=== PATIENT | female | born 1995 | race Caucasian/White ===

== ENCOUNTER 2016-10-24 22:54 | Emergency (ER) | payer OTHER ==
[2016-10-24 23:26] LABS: URINE APPEARANCE HAZY; URINE BILIRUBIN NEGATIVE (NEGATIVE); URINE BLOOD 4+ (NEGATIVE); URINE GLUCOSE (UA) NEGATIVE (NEGATIVE); URINE LEUKOCYTE ESTERASE NEGATIVE (NEGATIVE); URINE NITRITE NEGATIVE (NEGATIVE); URINE PROTEIN 1+ (NEGATIVE); URINE UROBILINOGEN NORMAL (0-1 mg/dl)
[2016-10-24 23:27] LABS: HCG,QUALITATIVE URINE NEGATIVE; URINE COLOR REDDISH
[2016-10-24 23:31] LABS: URINE BACTERIA 0; URINE EPITHELIAL CELLS FEW /hpf; URINE WBC 0-1 /hpf
[2016-10-25 00:59] LABS: ABSOLUTE NEUTROPHIL COUNT 5.3 K/mm3 (1.8-7.7); BASO # 0.1 K/mm3 (0.0-0.2); BASO % 0.7 % (0.2-1.0); EOS # 0.2 (0.0-0.5); EOS % 1.9 % (0.9-2.9); HEMATOCRIT 42.3 % (37.0-47.0); IMM NEUT% 0.2 % (0-1); LYMPH # 3.8 (1.0-4.8); LYMPH % 37.4 % (15-45); MEAN CELL VOLUME 86.7 fl (81.0-99.0); MEAN CORPUSCULAR HEMOGLOBIN 28.7 pg (27.0-31.0); MEAN CORPUSCULAR HGB CONC 33.1 g/dl (33.0-37.0); MEAN PLATELET VOLUME 10.2 fl (7.4-10.4); MONO # 0.7 (0.0-0.8); MONO % 7.2 % (4-12); NEUT % 52.6 % (43-75); PLATELET COUNT 304 K/mm3 (130-400); RED CELL DISTRIBUTION WIDTH 13.2 % (11.5-14.5)
[2016-10-25 01:07] LABS: ALB/GLOB RATIO 1.3 (>1.0); ALBUMIN 4.5 gm/dL (3.5-5.7); CALCIUM 9.5 mg/dL (8.6-10.3)
[2016-10-25] MEDS ORDERED: HYDROCODONE/ACETAMINOPHEN 5/325MG TABLET ONE (02:42)
--- NOTE | 2016-10-25 07:50 | US ---
Exam: Gallbladder ultrasound COMPARISON: None INDICATION: Right upper quadrant pain. FINDINGS: Gallbladder ultrasound was obtained. Gallbladder is partially contracted in this nonfasting state. No gallstones are identified. There is no gallbladder wall thickening or pericholecystic fluid. There was a negative sonographic Meza's sign. Common bile duct is normal at 4 mm. IMPRESSION: Negative gallbladder ultrasound. Preliminary report transmitted to the emergency department from [facility] at 0142 hours 10/25/2016.
== END 2016-10-25 02:26 | disposition home or self-care (01) ==
LOC: ED 22:54
DX: R10.31 Right lower quadrant pain (principal); R19.7 Diarrhea, unspecified
CPT/HCPCS: 83690; 81025; 85025; 80053; 81001; 76705; 99283 ×2; A9270

== ENCOUNTER 2016-10-30 10:00 | Day surgery (SDC) | payer OTHER ==
[~2016-10-30 10:00] MED LIST: IV START KIT ONE; LACTATED RINGERS 1,000 ML ONE
[2016-10-30] MEDS ORDERED: ERTAPENEM SODIUM 1 G in NS 0.9% (MINI-BAG PLUS) 50 ML IV PRN (11:43)
[2016-10-30] MEDS ORDERED: LIDOCAINE 1% 2 ML VIAL ID PRN (11:43)
[2016-10-30] MEDS ORDERED: LACTATED RINGERS 1,000 ML IV SCH ×3 (11:45→14:30)
[2016-10-30] MEDS ORDERED: LIDOCAINE 1%/EPI 1:100,000 (MULTI DOSE) 30 ML VIAL ONE (12:07)
[2016-10-30] MEDS ORDERED: FENTANYL 100 MCG/2 ML VIAL ONE (12:17)
[2016-10-30] MEDS ORDERED: PROPOFOL 20 ML IV ONE (12:38)
[2016-10-30] MEDS ORDERED: METOCLOPRAMIDE HCL 5 MG/ML 2ML VIAL ONE (12:38)
[2016-10-30] MEDS ORDERED: ONDANSETRON 4 MG/2ML 2 ML VIAL ONE ×2 (12:38→14:16)
[2016-10-30] MEDS ORDERED: KETOROLAC TROMETHAMINE 30 MG/ML 1 ML VIAL ONE (12:38)
[2016-10-30] MEDS ORDERED: ROCURONIUM BROMIDE 10 MG/ML DOSE IV ONE (12:38)
[2016-10-30] MEDS ORDERED: ONDANSETRON 4 MG/2ML 2 ML VIAL IV PRN ×2 (12:43→14:30)
[2016-10-30] MEDS ORDERED: MORPHINE SULFATE 4 MG/ML SYRINGE IV PRN (12:43)
[2016-10-30] MEDS ORDERED: ATROPINE SULFATE 0.4 MG/1 ML VIAL IV PRN (12:43)
[2016-10-30] MEDS ORDERED: NALOXONE HCL 0.4 MG/ML VIAL IV PRN (12:43)
[2016-10-30] MEDS ORDERED: LABETALOL HCL 5 MG/ML 20ML VIAL IV PRN (12:43)
[2016-10-30] MEDS ORDERED: MEPERIDINE 25 MG/ML SYRINGE IV PRN (12:43)
[2016-10-30] MEDS ORDERED: PROMETHAZINE HCL 25 MG/ML VIAL IM PRN (12:43)
[2016-10-30] MEDS ORDERED: MORPHINE SULFATE 10 MG/ML SYRINGE ONE (12:53)
[2016-10-30] MEDS ORDERED: MORPHINE SULFATE 4 MG/ML SYRINGE ONE (13:48)
--- NOTE | 2016-10-30 14:08 | PCMBPN ---
Brief Post Op Note: Date of Procedure: 10/30/16 Preoperative Diagnosis: 1. appendicitis Postoperative Diagnosis: 1. Same Procedure: Laparoscopic appendectomy Surgeon: Nichelle Campbell MD Assist:n/a Anesthesia: GETA Findings: see dictation Condition: stable Complications: none IV Fluids: see anesthesia report Urine Output: not recorded Estimated Blood Loss: 5 mLs Tourniquet Time: N/A Specimens: appendix Implants: none Drains: [N/A]
[2016-10-30] MEDS ORDERED: HYDROMORPHONE HCL 0.5 MG/0.5 ML SYRINGE IV PRN (14:10)
[2016-10-30] MEDS ORDERED: HYDROMORPHONE HCL 1 MG/ML SYRINGE IV ONE (14:14)
[2016-10-30] MEDS ORDERED: HYDROMORPHONE HCL 1 MG/ML SYRINGE ONE (14:14)
[2016-10-30] MEDS ORDERED: OXYCODONE/ACETAMINOPHEN 5/325 MG TABLET PO PRN (14:30)
[2016-10-30] MEDS ORDERED: HYDROMORPHONE HCL 1 MG/ML SYRINGE IV PRN (14:30)
[2016-10-30] MEDS ORDERED: HYDROCODONE/ACETAMINOPHEN 5/325MG TABLET PO ONE (14:52)
[2016-10-30] MEDS ORDERED: SCOPOLAMINE 1.5 MG/72 HR 1 EACH PATCH TD ONE ×2 (17:19→17:21)
--- NOTE | 2016-10-30 18:20 | OP ---
FRANCISCO GANDHI [id number] : 1995 DATE OF PROCEDURE: October 30, 2016 PREPROCEDURE DIAGNOSIS: Appendicitis. POST PROCEDURE DIAGNOSIS: Appendicitis. PROCEDURE PERFORMED: LAPAROSCOPIC APPENDECTOMY. SURGEON: Nichelle Campbell M.D. ANESTHESIA: General. FINDINGS: An inflamed appendix that was tethered to the bladder. TECHNIQUE: The patient was brought back to the operating room and placed under general anesthesia. The abdomen was prepped and draped in sterile surgical fashion. Local anesthetic was placed in the right upper quadrant at a prior scar and a #15 blade scalpel was used to make a less than 1 cm transverse incision. A 5 mm port with a zero degree scope was used to slowly enter the abdomen looking at all the abdominal layers as we went. Once we entered the peritoneal cavity, insufflation pushed the abdominal contents away and there was no damage to organs on entry. A 30 degree scope was then used, and then a 12 mm port was placed at the periumbilical position and a 5 mm port suprapubically. Once those were placed, it was noted that there were some adhesions around the cecum but these were bluntly dissected fairly easily. There were some better adhesions there that took a little bit more effort to take down. The appendix was visualized, and it was very firm and had a lot of inflammation around it still. There was a little bit of oozing with some of the adhesions being taken down but no significant bleeding. The appendix was grabbed and lifted. It was significant in diameter so a blue load stapler was taken and a small window was made in the mesentery around it. I used a 60 load stapler and put that through and tried to find a good location where I felt like I got all the way around it. I divided and I still felt that there was still a little bit that I needed to divide with the stapler. I used the LigaSure actually to take the mesentery as there were still some bigger adhesions out laterally that I felt I needed the LigaSure to take down as I did not want to get into any bleeding. It was fixed inferiorly to some omentum and as I continued dissecting further, it seemed to be adherent to the bladder. I did not use the LigaSure at this location because I was afraid I would maybe get into the bladder and I was actually worried there might be a little fistula at this portion, but it did come away. I did not see an actual connection. There was no leakage or any signs of fistula. Once that was removed, I took a blue load stapler and then took off the rest of the attachment from the cecum to the appendix and placed the appendix in an EndoCatch bag. I used a suction director medical to remove the small amount of oozing that had occurred with the adhesiolysis and I examined the area for a while. There was no further oozing. Everything was nice and dry. I then took the appendix out of the periumbilical port site, took a Bhavesh Barbara and a #0 Vicryl and used that to close the periumbilical port site. Once that was tied, the fascia was secured and no defect at the periumbilical fascia. Then I closed the skin incisions with #4-0 Monocryl after decompressing the abdomen and port removal. I placed SteriStrips. Patient was extubated and returned to recovery in stable condition. All needle, instrument and sponge counts were correct at the end of the case.
--- NOTE | 2016-11-03 13:01 | SURGPATH ---
[facility] [address] [place] [id number] Patient Name: FRANCISCO GANDHI MR#: [id number] : 1995 Gender: F Specimen #: [id number] Collected: 10/30/2016 Received: 11/01/2016 Reported: 11/03/2016 Submitting Phys: LATOYA BURROUGHS Copy To Phys: BHAVIN [facility] Clinical History / Pre-Operative Diagnosis: APPENDICITIS Specimen Source / Surgical Procedure Performed: APPENDIX Interpretation: APPENDIX, APPENDECTOMY: - ACUTE APPENDICITIS WITH MUCOCELE Electronically Signed Out Gene Diaz M.D. Gross Description: The specimen is received in a formalin filled container labeled with the patient's name and "appendix". A vermiform appendix is 6.5 x 1.5 cm. The attached hemorrhagic periappendiceal fat is 5.5 x 1.3 x 1 cm. The serosa is focally hemorrhagic, has fibrous adhesions and focal areas lightly covered with white barber fibrinopurulent exudate. A surgical staple line is removed and the adjacent section is inked black and submitted as margin. The lumen is focally patent. There is no nodule or fecalith. Three inventory representative sections are submitted in cassettes A and B. Summary of sections: A-central cross section and longitudinal section through tip B-appendiceal surgical margin New tissue: F-[id number]-[id number] of appendix Alannah Cox Microscopic Description: Sections of the entirely submitted appendix reveal a small amount of mucin and inflammatory cells within the lumen. Focally within the longitudinal sections mucin and inflammatory cells extend through the wall and focally into the andressa-appendiceal fat. There is no epithelium associated with the mucin/inflammation. 1: [id number] K35.89
== END 2016-10-30 17:48 | disposition home or self-care (01) ==
LOC: SDC 10:00
PROVIDERS: ATTEND Surgery
PROC: 0DTJ4ZZ Resection of Appendix, Percutaneous Endoscopic Approach (ICD-10-PCS; principal; 2016-10-30)
DX: K35.89 Other acute appendicitis (principal)